=== PATIENT | female | born 1980 | race Caucasian/White ===

== ENCOUNTER 2017-10-15 12:00 | Emergency (ER) | payer OTHER ==
[~2017-10-15] VITALS: Ht 167.6 cm; Wt 72.0 kg
[~2017-10-15 12:00] MED LIST: FOLIC ACID1 MG PO; HYDROCHLOROTHIA25 MG PO; HYDROCODON-ACE1 EAC7 PO; LISINOPRIL20 MG PO; MOTRIN800 MG PO; OXYCODONE HCL30 MG PO; PERCOCET 5/31 TABLET PO; POLYMYXIN B-TMP10 ML BOTH EYES; TOBREX3.5 GM BOTH EYES; VITAMIN B122500 MCG PO; XANAX1 MG PO
[2017-10-15 14:58] LABS: CHLORIDE 106 mEq/L (99-109); POTASSIUM 3.6 mEq/L (3.7-5.4); SODIUM 139 mEq/L (136-147)
[2017-10-15 14:59] LABS: GLUCOSE 91 mg/dL (70-99)
[2017-10-15 15:03] LABS: CREATININE 0.7 mg/dL (0.6-1.3); GFR ESTIMATE (CALCULATED) > 59 mL/min/
[2017-10-15 15:04] LABS: UREA NITROGEN (BUN) 12 mg/dL (9-23)
[2017-10-15] MEDS ORDERED: PREDNISONE20 MG PO (15:20)
[2017-10-15] MEDS ORDERED: BENADRYL25 MG PO (15:20)
[2017-10-15] MEDS ORDERED: PEPCID20 MG PO (15:20)
[2017-10-15 15:42] VITALS: BP 144/88
== END 2017-10-15 15:43 | disposition home or self-care (01) ==
LOC: EME 12:00
PROVIDERS: Physician Assistant Medical
DX: R21 Rash and other nonspecific skin eruption (principal); I10 Essential (primary) hypertension; F17.200 Nicotine dependence, unspecified, uncomplicated; F32.9 Major depressive disorder, single episode, unspecified; K21.9 Gastro-esophageal reflux disease without esophagitis; F41.9 Anxiety disorder, unspecified
CPT/HCPCS: 80048; 99281; 99284; J7512